=== PATIENT | female | born 1950 | race Caucasian/White ===

== ENCOUNTER 2017-11-06 22:18 | Emergency (ER) | payer MEDICARE, OTHER ==
[2017-11-06 22:18] VITALS: BMI 32.2
[2017-11-06 22:40] VITALS: BP 168/91; PULSE 88; RESP 16; TEMP 98.5; O2SAT 98
[2017-11-06] MEDS ORDERED: Tdap Vaccine 0.5 ml Vial (10-64 yrs) IM ONE ×2 (22:56→23:24)
--- NOTE | 2017-11-06 23:09 | ED PDOC ---
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 states earlier today she accidentally cut her L index finger with a scissor. Pt. states she is concerned she may get an infection as her tetanus is not UTD and she is DM. Of note, pt. states she does not want sutures. Denies fever, numbness, tingling, FB sensation. Past Medical History Reviewed: Historical Data, Nursing Documentation, Vital Signs Vital Signs: Last Vital Signs Temp 98.5 F 11/06/17 22:37 Pulse 88 11/06/17 22:37 Resp 16 11/06/17 22:37 BP 168/91 H 11/06/17 22:37 Pulse Ox 98 11/06/17 22:37 - Medical History PMH: Diabetes, HTN, Hypercholesterolemia Denies: Depression, Chronic Kidney Disease - Surgical History Surgical History: Appendectomy - Family History Family History: States: No Known Family Hx - Immunization History Hx Tetanus Toxoid Vaccination: No Hx Influenza Vaccination: No Hx Pneumococcal Vaccination: No - Home Medications Home Medications: Ambulatory Orders Medication Instructions Recorded Losartan Potassium [Losartan 01/01/12 Potassium] Rosuvastatin Calcium [Crestor] 01/01/12 Coreg 08/05/13 Carvedilol 07/18/14 Metformin HCl [Metformin] 1,000 mg PO 07/18/14 Naproxen [Naprosyn] 1 tab PO BID PRN #25 tab 07/18/14 Sitagliptin Phosphate [Januvia] 25 mg PO 07/18/14 amLODIPine [Norvasc] 5 mg PO 07/18/14 Amoxicillin/Clavulanate [Augmentin 1 tab PO BID #20 tab 11/06/17 875 MG-125 MG] - Allergies Allergies/Adverse Reactions: Allergies Allergy/AdvReac Type Severity Reaction Status Date / Time No Known Allergies Allergy Verified 11/06/17 22:40 Review of Systems ROS Statement: Except As Marked, All Systems Reviewed And Found Negative Physical Exam - Physical Exam Appears: Positive for: Well, Non-toxic, No Acute Distress Skin: Positive for: Normal Color, Warm. Negative for: Rash Pulses-Radial (L): 2+ Pulses-Radial (R): 2+ Extremity: Positive for: Capillary Refill (< 2 seconds of L 2nd digit), Other ( 0.5cm superficial linear laceration on L 2nd digit over dorsal surface of PIP without deep structures noted; L 2nd digit with FROM actively; no active bleeding of L 2nd digit; no swelling, surrounding erythema, discharge of L 2nd digit) - ECG O2 Sat by Pulse Oximetry: 98 - Progress ED Course And Treament: Pebbles (interior paneler) used during this conversation. Pt. was informed that sutures are required to provide optimal healing of wound. Also told that sutures will further prevent infection and worsening of injury. Pt. still refused suture placement. Informed that wound has a likelihood of infection which can lead to finger amputation due to her being diabetic and that wound can further open and also cause deep structure injury such as tendon rupture which can irreversibly cause a limitation in ROM or may require surgery. Pt. verbalized understanding of risks of not getting sutures. All questions were answered. Pt. was encouraged to have sutures placed but still refused. Told to f/u with PMD or return to ED in 2 days for wound check. Wound care instructions also provided. Wound irrigated heavily with NS. Bacitracin ointment applied. DSD applied. Finger immobilized in aluminum finger splint. Tetanus prophylaxis administered. Augmentin PO ordered. Disposition - Clinical Impression Clinical Impression: Finger laceration - Patient ED Disposition Is Patient to be Admitted: No - Disposition Referrals: [facility] [Outside] [facility] [Outside] Disposition: Routine/Home Disposition Time: 23:08 Condition: STABLE Additional Instructions: LAINE HARDY, thank you for letting us take care of you today. Your provider was Ellyn Smith MD and you were treated for LEFT FINGER INJURY. The emergency medical care you received today was directed at your acute symptoms. If you were prescribed any medication, please fill it and take as directed. It may take several days for your symptoms to resolve. Return to the Emergency Department if your symptoms worsen, do not improve, or if you have any other problems. Please contact your doctor or call one of the physicians/clinics you have been referred to that are listed on the Patient Visit Information form that is included in your discharge packet. Bring any paperwork you were given at discharge with you along with any medications you are taking to your follow up visit. Our treatment cannot replace ongoing medical care by a primary care provider outside of the emergency department. Thank you for allowing the [facility] team to be part of your care today. If you had an X-Ray or CT scan: A Radiologist will review the ED reading if any change in treatment is needed we will contact you. If you had a blood, urine, or wound culture: It will take several days for the results, if any change in treatment is needed we will contact you. If you had an STI test: It will take 48 hours for the results. Please call after 1 week if you have not heard back. Prescriptions: Amoxicillin/Clavulanate [Augmentin 875 MG-125 MG] 1 tab PO BID #20 tab Instructions: Wound Care (DC) Forms: [employer] (Uzbek) Print Language: UPPER SORBIAN
[2017-11-06] MEDS ORDERED: Amoxicillin-Clav 875-125 mg Tab PO STA (23:17)
== END 2017-11-06 23:44 | disposition home or self-care (01) ==
LOC: H.ER 22:18
DX: S61.211A Laceration without foreign body of left index finger without damage to nail, initial encounter (principal); W27.2XXA Contact with scissors, initial encounter; Y92.89 Other specified places as the place of occurrence of the external cause; E11.9 Type 2 diabetes mellitus without complications; E78.00 Pure hypercholesterolemia, unspecified; I10 Essential (primary) hypertension; Z79.84 Long term (current) use of oral hypoglycemic drugs

== ENCOUNTER 2018-05-30 18:51 | Emergency (ER) | payer MEDICARE, OTHER ==
[2018-05-30 18:51] VITALS: BMI 32.2
[2018-05-30 18:59] VITALS: O2SAT 100
[2018-05-30] MEDS ORDERED: Sodium Chloride 0.9% 1,000 ML IV STA ×2 (19:20→23:01)
--- NOTE | 2018-05-30 19:20 | ED PDOC ---
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 Additional Complaint(s): 68 year old female with pmhx of diabetes and htn presents to the ED with daughter for evaluation of high blood sugar and high blood pressure. Patient reports that yesterday she was seen by her PMD who did blood work and was called today and told to come to ED after her sugar was found to be over 500. She notes that last night after her PMD appointment, she went home and took her own Januvia and Insulin, last dose Humalog today after eating, but her sugar in triage was 253. Additionally, patient reports waxing and waning dizziness for the past week associated with feeling dehydrated, but otherwise denies fever, chest pain, abdominal pain, and shortness of breath. Of note, she says four days ago she also had some vomiting and diarrhea, but it has since resolved. PMD: Rk Clay Past Medical History Reviewed: Historical Data, Nursing Documentation, Vital Signs Vital Signs: Last Vital Signs Temp 98.8 F 05/30/18 18:56 Pulse 94 H 05/30/18 18:56 Resp 16 05/30/18 18:56 BP 162/89 H 05/30/18 18:56 Pulse Ox 100 05/30/18 18:56 - Medical History PMH: Diabetes, HTN, Hypercholesterolemia Denies: Depression, Chronic Kidney Disease - Surgical History Surgical History: Appendectomy - Family History Family History: States: Unknown Family Hx - Social History Current smoker - smoking cessation education provided: No Alcohol: None Drugs: Denies - Immunization History Hx Tetanus Toxoid Vaccination: No Hx Influenza Vaccination: No Hx Pneumococcal Vaccination: No - Home Medications Home Medications: Ambulatory Orders Medication Instructions Recorded Losartan Potassium 01/01/12 Rosuvastatin Calcium [Crestor] 01/01/12 Coreg 08/05/13 Carvedilol 07/18/14 Metformin HCl [Metformin] 1,000 mg PO 07/18/14 Naproxen [Naprosyn] 1 tab PO BID PRN #25 tab 07/18/14 Sitagliptin Phosphate [Januvia] 25 mg PO 07/18/14 amLODIPine [Norvasc] 5 mg PO 07/18/14 Amoxicillin/Clavulanate [Augmentin 1 tab PO BID #20 tab 11/06/17 875 MG-125 MG] - Allergies Allergies/Adverse Reactions: Allergies Allergy/AdvReac Type Severity Reaction Status Date / Time No Known Allergies Allergy Verified 05/30/18 18:56 Review of Systems ROS Statement: Except As Marked, All Systems Reviewed And Found Negative Constitutional: Positive for: Other (feels dehydrated; high blood sugar and high blood pressure). Negative for: Fever Cardiovascular: Negative for: Chest Pain Respiratory: Negative for: Shortness of Breath Gastrointestinal: Negative for: Nausea, Vomiting, Abdominal Pain, Diarrhea Neurological: Positive for: Dizziness Physical Exam - Reviewed Nursing Documentation Reviewed: Yes Vital Signs Reviewed: Yes - Physical Exam Appears: Positive for: No Acute Distress Head Exam: Positive for: ATRAUMATIC, NORMAL INSPECTION, NORMOCEPHALIC Skin: Positive for: Normal Color, Warm, Dry. Negative for: Rash Eye Exam: Positive for: EOMI, Normal appearance, PERRL ENT: Positive for: Normal ENT Inspection Neck: Positive for: Normal, Painless ROM, Supple Cardiovascular/Chest: Positive for: Regular Rate, Rhythm Respiratory: Positive for: Normal Breath Sounds. Negative for: Respiratory Distress Gastrointestinal/Abdominal: Positive for: Normal Exam, Soft. Negative for: Tenderness, Mass, Guarding, Rebound Back: Positive for: Normal Inspection Extremity: Positive for: Normal ROM (all extremities) Neurological/Psych: Positive for: Awake, Alert, Oriented (x3) - Laboratory Results Result Diagrams: 05/30/18 20:00 05/30/18 20:00 - ECG O2 Sat by Pulse Oximetry: 100 (RA) Pulse Ox Interpretation: Normal Medical Decision Making Medical Decision Making: Time: 1918 Initial Impression: high blood sugar, high blood pressure, r/o dehydration, electrolyte imbalance, and infection Initial Plan: --CMP --CBC with differential --Normal saline IV --Zofran 4mg IM --Urine culture --Urinalysis --Reevaluation 2145 Anion gap normal at 9, however BUN and creatinine elevated at 26 and 1.4 respectively. Possibility of new onset renal failure, no prior labs. Awaiting ur inalysis results. Patient remains in NAD, no pain o rdiscomfort. 2235 Patient reports no history of kidney problems. Informed her that symptoms could just be from dehydration as after 1L fluids she reports feeling improved. Advised patient to follow up with PMD in 1-2 days for repeat blood work and encouraged to stay hydrated at home and to follow up with pcp in 1-2 days. Stable for discharge at this time. pt ate chips and snacks so sugar went up to 300s gave another bag of ivf and insulin and will recheck sugar prior to dc Scribe Attestation: Documented by Yasemin Valenzuela, acting as a scribe for Priscilla Singer MD. Provider Scribe Attestation: All medical record entries made by the Scribe were at my direction and personally dictated by me. I have reviewed the chart and agree that the record accurately reflects my personal performance of the history, physical exam, medical decision making, and the department course for this patient. I have also personally directed, reviewed, and agree with the discharge instructions and disposition. Disposition - Clinical Impression Clinical Impression: Hyperglycemia, Weakness, Renal insufficiency, Dehydration - Patient ED Disposition Is Patient to be Admitted: No Counseled Patient/Family Regarding: Studies Performed, Diagnosis, Need For Followup - Disposition Disposition: Routine/Home Disposition Time: 22:35 Condition: IMPROVED Additional Instructions: follow up with your doctor in 2 days for reevaluation return to the ED with any worsening or concerning symptoms Instructions: Dehydration, Adult (DC), Weakness (ED) Forms: [employer] (Congolese), [employer] (Frisian) Print Language: DANISH
[2018-05-30 20:07] LABS: BASO # 0.1 K/uL (0.0-0.2); BASO % 0.7 % (0.0-2.0); EOS # 1.3 K/uL (0.0-0.7); EOS % 13.2 % (0.0-4.0); HEMOGLOBIN 13.3 g/dL (12.0-16.0); LYMPH # 3.6 K/uL (1.0-4.3); LYMPH % 35.7 % (20.0-40.0); MEAN CELL VOLUME 84.4 fl (81.0-99.0); MEAN CORPUSCULAR HEMOGLOBIN 28.8 pg (27.0-31.0); MEAN CORPUSCULAR HGB CONC 34.2 g/dL (33.0-37.0); MEAN PLATELET VOLUME 8.6 fl (7.2-11.7); MONO # 0.5 K/uL (0.0-0.8); MONO % 4.9 % (0.0-10.0); NEUT # 4.6 K/uL (1.8-7.0); NEUT % 45.5 % (50.0-75.0); RBC 4.6 Mil/uL (3.80-5.20); RED CELL DISTRIBUTION WIDTH 12.6 % (11.5-14.5); WHITE BLOOD COUNT 10.1 K/uL (4.8-10.8)
[2018-05-30 20:13] LABS: ALB/GLOB RATIO 1.2 (1.0-2.1); CALCIUM 9.9 mg/dL (8.4-10.2)
[2018-05-30 22:44] LABS: SQUAMOUS EPITHIAL < 1 /hpf (0-5); URINE BILIRUBIN NEGATIVE (NEGATIVE); URINE BLOOD NEGATIVE (NEGATIVE); URINE CLARITY CLEAR (Clear); URINE COLOR YELLOW (YELLOW); URINE GLUCOSE (UA) >=500 mg/dL (NEGATIVE); URINE LEUKOCYTE ESTERASE TRACE Leu/uL (Negative); URINE PROTEIN NEGATIVE (NEGATIVE); URINE UROBILINOGEN 0.2-1.0 mg/dL (0.2-1.0)
[2018-05-30] MEDS ORDERED: Insulin Regular 100 units/ml SC STA (23:00)
[2018-05-30] MEDS ORDERED: Insulin Regular 100 units/ml ONE (23:14)
[2018-05-31 01:19] VITALS: RESP 18
[2018-05-31 01:20] VITALS: BP 145/96; PULSE 78; TEMP 98
== END 2018-05-31 01:20 | disposition home or self-care (01) ==
LOC: H.ER 18:51
DX: E11.65 Type 2 diabetes mellitus with hyperglycemia (principal); I10 Essential (primary) hypertension; Z79.84 Long term (current) use of oral hypoglycemic drugs; Z79.899 Other long term (current) drug therapy; N28.9 Disorder of kidney and ureter, unspecified; E86.0 Dehydration; E78.00 Pure hypercholesterolemia, unspecified
CPT/HCPCS: 80053; 81003; 82948; 85025; 87086; 96361; 96374; 96375; 99284; J1885; J2405; J7030